=== PATIENT | male | born 1980 | race Caucasian/White ===

== ENCOUNTER 2017-05-13 19:10 | Emergency (ER) | payer BC, OTHER ==
[~2017-05-13] VITALS: Ht 177.8 cm; Wt 106.8 kg
[2017-05-13 19:19] VITALS: Ht 177.8 cm; Wt 106.8 kg
[2017-05-13] MEDS ORDERED: ONDANSETRON 4 MG INJ IV STA (20:02)
[2017-05-13] MEDS ORDERED: FAMOTIDINE 20 MG TAB PO STA (20:02)
[2017-05-13] MEDS ORDERED: SOD CHLORIDE 0.9% 1,000 ML IV STA (20:02)
[2017-05-13] MEDS ORDERED: morphine 4 MG/ML VIAL IV STA (20:02)
--- NOTE | 2017-05-13 20:18 | ERD ---
ER Documentation Chief Complaint Date/Time DATE: 05/13/17 TIME: 20:15 Chief Complaint N/V ABD PAIN X4 HRS. PT STATES HE THINKS HE HAS FOOD POISONING HPI This a 36-year-old male who presents the emergency department today complaining of nausea vomiting area for the past 4-5 hours. Patient states that he ate chicken wings and started having symptoms shortly after that. States that his mouth feels dry and he has body aches at this time.States he has a history of gastric sleeve surgery approximately 1-1/2 years ago. ROS All systems reviewed and are negative except as per history of present illness. Medications Home Meds Active Scripts Electrolyte,Oral (Pedialyte) 1,000 Ml Solution, 100 ML PO Q6 Y for VOMITTING, # 1000 ML Prov:HERMAN PERLA PA-C 05/13/17 Acetaminophen* (Tylophen*) 500 Mg Capsule, 1 CAP PO Q6H Y for PAIN AND OR ELEVATED TEMP, #30 CAP Prov:HERMAN PERLA PA-C 05/13/17 Dicyclomine Hcl* (Bentyl*) 10 Mg Capsule, 10 MG PO QID, #30 CAP Prov:HERMAN PERLA PA-C 05/13/17 Ondansetron Hcl* (Zofran*) 4 Mg Tablet, 4 MG PO Q6H for NAUSEA AND/OR VOMITING, #30 TAB Prov:HERMAN PERLA PA-C 05/13/17 Famotidine* (Pepcid*) 20 Mg Tablet, 20 MG PO BID for 10 Days, TAB Prov:HERMAN PERLA PA-C 05/13/17 Allergies Allergies: Coded Allergies: No Known Allergy (Unverified , 05/13/17) PMhx/Soc Medical and Surgical Hx: pt denies Medical Hx History of Surgery: Yes (GASTRIC SLEEVE, R KNEE ) Anesthesia Reaction: No Hx Neurological Disorder: No Hx Respiratory Disorders: No Hx Cardiac Disorders: No Hx Psychiatric Problems: No Hx Miscellaneous Medical Probl: No Hx Alcohol Use: Yes Hx Substance Use: No Hx Tobacco Use: Yes Smoking Status: Current every day smoker Physical Exam Vitals Vital Signs Date Time Temp Pulse Resp B/P Pulse Ox O2 Delivery O2 Flow Rate FiO2 05/13/17 19:45 96 18 116/83 100 Room Air 05/13/17 19:19 98.5 72 18 112/65 99 Physical Exam Const: NAD Head: Atraumatic Eyes: Normal Conjunctiva ENT: Normal External Ears, Nose and Mouth. Neck: Full range of motion..~ No meningismus. Resp: Clear to auscultation bilaterally Cardio: Regular rate and rhythm, no murmurs Abd: Soft, epigastric tenderness, non distended. Normal bowel sounds. No lower abdominal pain or tenderness at McBurney's. No RUQ pain Skin: No petechiae or rashes Back: No midline or flank tenderness Ext: No cyanosis, or edema Neur: Awake and alert Psych: Normal Mood and Affect Result Diagram: 05/13/17202405/13/172024 Results 24 hrs Laboratory Tests Test 05/13/17 20:25 White Blood Count 14.310^3/ul Red Blood Count 5.9610^6/ul Hemoglobin 17.9g/dl Hematocrit 50.9% Mean Corpuscular Volume 85.4fl Mean Corpuscular Hemoglobin 30.0pg Mean Corpuscular Hemoglobin Concent 35.2g/dl Red Cell Distribution Width 12.1% Platelet Count 28368^3/UL Mean Platelet Volume 11.6fl Neutrophils % 86.0% Lymphocytes % 5.3% Monocytes % 7.2% Eosinophils % 0.7% Basophils % 0.3% Nucleated Red Blood Cells % 0.0/100WBC Neutrophils # (Manual) 12.310^3/ul Lymphocytes # 0.810^3/ul Monocytes # 1.010^3/ul Eosinophils # 0.110^3/ul Basophils # 0.010^3/ul Nucleated Red Blood Cells # 0.010^3/ul Urine Color CROW Urine Clarity CLOUDY Urine pH 5.0 Urine Specific [place] 1.029 Urine Ketones TRACEmg/dL Urine Nitrite NEGATIVEmg/dL Urine Bilirubin 1+mg/dL Urine Urobilinogen 2+mg/dL Urine Leukocyte Esterase TRACELeu/ul Urine Microscopic RBC 0/HPF Urine Microscopic WBC 15/HPF Urine Squamous Epithelial Cells FEW/HPF Urine Hyaline Casts FEW/HPF Urine Mucus MANY/HPF Urine Hemoglobin NEGATIVEmg/dL Urine Glucose NEGATIVEmg/dL Urine Total Protein 2+mg/dl Sodium Level 144mmol/L Potassium Level 4.1mmol/L Chloride Level 108mmol/L Carbon Dioxide Level 20mmol/L Anion Gap 20 Blood Urea Nitrogen 17mg/dl Creatinine 1.24mg/dl Glucose Level 143mg/dl Calcium Level 10.2mg/dl Total Bilirubin 1.7mg/dl Direct Bilirubin 0.00mg/dl Indirect Bilirubin 1.7mg/dl Aspartate Amino Transf (AST/SGOT) 35IU/L Alanine Aminotransferase (ALT/SGPT) 24IU/L Alkaline Phosphatase 66IU/L Total Protein 8.9g/dl Albumin 5.0g/dl Globulin 3.90g/dl Albumin/Globulin Ratio 1.28 Lipase 62U/L Current Medications Medications (Trade) Dose Ordered Sig/Shola Route PRN Reason Start Time Stop Time Status Last Admin Dose Admin Sodium Chloride (NS) 1,000 ml @ 1,000 mls/hr Q1H STAT IV 05/13/17 20:02 05/13/17 21:01 DC 05/13/17 20:26 Morphine Sulfate (morphine) 4 mg ONCE STAT IV 05/13/17 20:02 05/13/17 20:03 DC 05/13/17 20:25 Ondansetron HCl (Zofran Inj) 4 mg ONCE STAT IV 05/13/17 20:02 05/13/17 20:03 DC 05/13/17 20:25 Famotidine (Pepcid) 20 mg ONCE STAT PO 05/13/17 20:02 05/13/17 20:03 DC 05/13/17 20:24 Procedures/MDM This a 36-year-old male presents to the emergency department today complaining of nausea vomiting diarrhea and abdominal pain for the past 4-5 hours. On physical exam patient had epigastric tenderness. He does not have any right upper quadrant pain however given patient's history of gastric sleeve approximately 1-1/2 years ago I did obtain laboratory work. Laboratory workupShows an elevated white blood cell count of 14.3. He is not anemic. Platelets are within normal limits. Electrolytes are within normal limits. Glucose is within normal limits. Liver enzymes are within normal limits. Lipase within normal limits. UAShows trace leukocyte esterase and 15 microscopic white blood cells. Patient denies any dysuria. Low suspicion for urinary tract infection from pyelonephritis, nephrolithiasis. Patient has no right lower quadrant pain and no right upper quadrant pain I do not feel that he requires imaging at this time. Low suspicion for acute cholecystitis, acute appendicitis or acute surgical abdomen.Patient's elevated white blood cell count likely reactive from vomiting. Patient was given IV fluids, Zofran and Pepcid here in the emergency department and symptoms improved. Patient symptoms at this time is consistent with vomiting and diarrhea and abdominal pain likely viral. Low suspicion for acute surgical abdomen. Patient will be given a prescription for Zofran, Pepcid, Bentyl, Pedialyte and Tylenol. He was also given a work note. At this time the patient is stable for discharge and outpatient management. Patient should follow up with their PCP in the next 1-2 days. They may return to the emergency department sooner for any persistent or worsening of symptoms. Patient understood and agreed with the plan. Departure Diagnosis: Primary Impression: Vomiting and diarrhea Additional Impression: Abdominal pain Abdominal location: epigastric Qualified Code: R10.13 - Epigastric pain Condition: Fair HERMAN PERLA PA-C May 13, 2017 20:18
[2017-05-13 20:43] LABS: BASOPHILS % 0.3 % (0.0-2.0); EOSINOPHILS # 0.1 10^3/ul (0.0-0.5); EOSINOPHILS % 0.7 % (0.0-7.0); HEMATOCRIT 50.9 % (42.0-52.0); HEMOGLOBIN 17.9 g/dl (14.0-18.0); LYMPHOCYTES # 0.8 10^3/ul (0.8-2.9); LYMPHOCYTES % 5.3 % (15.0-51.0); MEAN CORPUSCULAR HGB CONC 35.2 g/dl (32.0-37.0); MEAN CORPUSCULAR VOLUME 85.4 fl (82.0-101.0); MEAN PLATELET VOLUME 11.6 fl (7.4-10.4); MONOCYTES % 7.2 % (0.0-11.0); PLATELET COUNT 222 10^3/UL (140-415); RED BLOOD COUNT 5.96 10^6/ul (4.70-6.10); RED CELL DISTRIBUTION WIDTH 12.1 % (11.5-14.5); WHITE BLOOD COUNT 14.3 10^3/ul (4.8-10.8)
[2017-05-13 21:04] LABS: ALBUMIN/GLOBULIN RATIO 1.28; BILIRUBIN,INDIRECT 1.7 mg/dl (0-1.1); BILIRUBIN,TOTAL 1.7 mg/dl (0.2-1.3); CALCIUM 10.2 mg/dl (8.4-10.2); CREATININE 1.24 mg/dl (0.61-1.24); POTASSIUM 4.1 mmol/L (3.5-5.1); TOTAL PROTEIN 8.9 g/dl (6.1-8.1)
[2017-05-13 21:35] LABS: ADD UMIC YES; UR ASCORBIC ACID 20 mg/dL (NEGATIVE); UR BILIRUBIN (Dip) 1+ mg/dL (NEGATIVE); UR BLOOD (Dip) NEGATIVE (NEGATIVE); UR CLARITY CLOUDY (CLEAR); UR COLOR AMBER (YELLOW); UR GLUCOSE (Dip) NEGATIVE (NEGATIVE); UR KETONES (Dip) TRACE mg/dL (NEGATIVE); UR LEUKOCYTE ESTERASE (Dip) TRACE Leu/ul (NEGATIVE); UR MUCUS MANY /HPF (NONE SEEN); UR NITRITE (Dip) NEGATIVE (NEGATIVE); UR RBC 0 /HPF (0-5); UR SPECIFIC GRAVITY (Dip) 1.029 (1.003-1.030); UR SQUAMOUS EPITHELIAL CELL FEW /HPF (FEW); UR TOTAL PROTEIN (Dip) 2+ mg/dl (NEGATIVE); UR UROBILINOGEN (Dip) 2+ mg/dL (NEGATIVE)
[2017-05-13] MEDS ORDERED: DICY10CA60 PO (21:56)
[2017-05-13] MEDS ORDERED: ONDA4TAB8 PO (21:56)
[2017-05-13] MEDS ORDERED: FAMO-96 PO (21:56)
[2017-05-13] MEDS ORDERED: ACET500C5 PO (21:57)
[2017-05-13] MEDS ORDERED: ELEC100080 PO (21:57)
[2017-05-13 22:06] VITALS: BP 121/83; PULSE 88; RESP 18; TEMP 98.7
== END 2017-05-13 22:08 | disposition home or self-care (01) ==
LOC: FTE 19:10
DX: R11.10 Vomiting, unspecified (principal); R19.7 Diarrhea, unspecified; R10.13 Epigastric pain; F17.210 Nicotine dependence, cigarettes, uncomplicated
CPT/HCPCS: 80053; 81001; 83690; 85025; 96374; 96375; 99284; J2270; J2405; J7030